=== PATIENT | female | born 1950 | race Caucasian/White ===

== ENCOUNTER 2019-01-27 05:32 | Inpatient (IN) ==
[~2019-01-27 05:32] MED LIST: Clindamycin 900mg (Premix) 900 MG/50 ML BAG IV ONE; LIDOCAINE W/ SODIUM BICARB 0.5 ML SYR ONE; Lactated Ringers 1,000 ML PRIMARY IV ONE; Sodium Chloride 0.9% 250 ML ONE; Vancomycin Inj 1gm vial ONE
[2019-01-27 05:53] LABS: BILIRUBIN,URINE SMALL (NEG); CLARITY,URINE CLEAR (CLEAR); COLOR,URINE YELLOW (Y); GLUCOSE, URINE (UA) NEGATIVE (NEG); OCCULT BLOOD,URINE Trace-intact (NEG); PH,URINE 5.5 (5.0-8.5); PROTEIN,URINE TRACE mg/dl (NEG)
[2019-01-27] MEDS ORDERED: Nasal Sanitizer POPSWAB ampule 3 AMP (Nozin) PREOP DOSE ENOS SCH (06:00)
[2019-01-27] MEDS ORDERED: Lactated Ringers 1,000 ML PRIMARY IV ONE ×2 (06:00→14:23)
[2019-01-27] MEDS ORDERED: Clindamycin 900mg (Premix) 900 MG/50 ML BAG IV ONE (06:00)
[2019-01-27] MEDS ORDERED: LIDOCAINE W/ SODIUM BICARB 0.5 ML SYR SUBD ONE (06:00)
[2019-01-27 06:18] LABS: SQUAMOUS EPITHELIAL CELL,UR MODERATE; URINE SAMPLE TYPE VOIDED SPECIMEN
[2019-01-27 06:19] LABS: BACTERIA,URINE FEW
[2019-01-27] MEDS ORDERED: Sodium Chloride 0.9% vial 20 ML ONE (06:46)
[2019-01-27] MEDS ORDERED: BACITRACIN 50,000 UNIT VIAL IRRIG ONE (06:47)
[2019-01-27] MEDS ORDERED: BUPIVACAINE 0.25% W/ EPI - 10 ML VIAL ONE (06:47)
[2019-01-27] MEDS ORDERED: Propofol 1,000 MG/100 ML VIAL IV ONE ×4 (06:48→13:37)
[2019-01-27] MEDS ORDERED: Sodium Chloride 0.9% 250 ML ONE (06:53)
[2019-01-27] MEDS ORDERED: REMIFENTANIL 1 MG/1 ML IV ONE ×3 (06:54→16:11)
[2019-01-27] MEDS ORDERED: REMIFENTANIL HCL 2 MG VIAL IV ONE ×5 (06:54→16:11)
[2019-01-27] MEDS ORDERED: LIDOCAINE MPF 2% - 5 ML (20 MG/1 ML) ONE ×2 (06:57→13:39)
[2019-01-27] MEDS ORDERED: SUFENTANIL 50 MCG/1 ML ONE (06:59)
[2019-01-27] MEDS ORDERED: MIDAZOLAM 5 MG/1 ML ONE ×2 (06:59→13:39)
[2019-01-27] MEDS ORDERED: Acetaminophen 1000mg Inj 1,000 MG/100 ML VIAL IV ONE (07:35)
[2019-01-27] MEDS ORDERED: DEXAMETHASONE PF 10 MG/1 ML VIAL ONE (07:57)
[2019-01-27] MEDS ORDERED: ONDANSETRON 4 MG/2 ML VIAL ONE (07:57)
[2019-01-27] MEDS ORDERED: KETAMINE HCL 100 MG/2 ML SYRINGE IV ONE (08:27)
[2019-01-27] MEDS ORDERED: HYDROmorphone 2 MG/1 ML ONE (12:18)
[2019-01-27] MEDS ORDERED: ONDANSETRON 4 MG/2 ML VIAL IVP PRN (13:22)
[2019-01-27] MEDS ORDERED: LIDOCAINE W/ SODIUM BICARB 0.5 ML SYR SUBD PRN (13:22)
--- NOTE | 2019-01-27 13:25 | CRNA.PROGR ---
Anesthesia Time - Procedure/Recovery Time Start Date: 01/27/19 End Date: 01/27/19 Anesthesia : Time In: 07:27 Anesthesia : Time Out: 13:11 Anesthesia : Total Time: 344 - Total Anesthesia Time Total Anesthesia Time (minutes): 344 - Other Weight: 59.421 kg Height: 5 ft 8 in Body Mass Index (BMI): 19.9 Physical Status: P2 Anesthesia Type: General Anesthesia : ET (Difficult Airway)
--- NOTE | 2019-01-27 13:25 | CRNA.PROGR ---
Anesthesia Recovery Phase I - Post Anesthesia Evaluation Patient's Condition on Arrival in Phase I: Fair Pain Level: 2
[2019-01-27] MEDS ORDERED: DIAZEPAM 10 MG/2 ML (5 MG/1 ML) CARPUJECT IVP PRN (13:27)
[2019-01-27] MEDS: HYDROmorphone 2 MG/1 ML IVP PRN ×5 (13:33→14:03)
[2019-01-27] MEDS ORDERED: PROPOFOL 10 MG/1 ML (200 MG/20 ML) VIAL IV ONE (13:37)
[2019-01-27] MEDS ORDERED: fentaNYL Inj 250 MCG/5 ML VIAL ONE (13:39)
[2019-01-27] MEDS ORDERED: HYDRALAZINE 20 MG/1 ML ONE (14:33)
[2019-01-27] MEDS: HYDRALAZINE 20 MG/1 ML IVP SCH ×6 (14:34→18:08)
[2019-01-27] MEDS ORDERED: Fleet Enema 133ml RECTAL PRN (15:26)
[2019-01-27] MEDS ORDERED: Vancomycin-PHA to Dose IV SCH (15:26)
[2019-01-27] MEDS ORDERED: HYDROcodone-APAP 5 MG -325 MG TABLET PO PRN (15:26)
[2019-01-27] MEDS ORDERED: Ondansetron ODT Tab 4 MG TAB PO PRN (15:26)
[2019-01-27] MEDS ORDERED: Prochlorperazine Edisylate Inj 10mg/2ml vial IVP PRN (15:26)
[2019-01-27] MEDS ORDERED: MAGNESIUM 400 MG/5 ML - 30 ML (MILK OF MAGNESIA) PO PRN (15:26)
[2019-01-27] MEDS ORDERED: PROMETHAZINE 25 MG/1 ML VIAL IM PRN (15:26)
[2019-01-27] MEDS ORDERED: MAGNESIUM CITRATE 296 ML SOLUTION PO PRN (15:26)
[2019-01-27] MEDS: HYDROcodone-APAP 7.5 MG-325 MG TABLET PO PRN ×2 (16:17→22:03)
[2019-01-27] MEDS ORDERED: Lactated Ringers 2,000 ML PRIMARY IV ONE (16:17)
[2019-01-27] MEDS: MORPHINE SULFATE 2 MG/1 ML IVP PRN ×2 (18:09→22:19)
[2019-01-27] MEDS: Clindamycin 900mg (Premix) 900 MG/50 ML BAG IV SCH ×2 (18:15→23:52)
--- NOTE | 2019-01-27 19:17 | PDOC ---
HPI - History of Present Illness Date of Service: 01/27/19 Time of Service: 19:10 Chief Complaint: chronic neck pain History of Present Illness: This is a 68 YO female that presented here for neck pain and neck surgery with Dr. Becerra. See his notes regarding the procedure performed. Post operatively, the patient has neck pain, but controlled. History is difficult due to decreased hearing, but she denies chest pain, shortness of breath, or nausea or vomiting. The patient had hypertension post operatively that required some hydralazine. The hospitalist service is consulted to help address medical issues of hypertension and hypercholesterolemia and seizure disorder while here for recovery from surgery. A posterior approach is planned for tomorrow. Past Medical History Medical History: 1. Hypothyroidism. 2. GERD. 3. Deaf. 4. seizure disorder. 5. chronic neck and back pain. 6. hypercholesterolemia. Surgical History: 1. neck surgery today. 2. hx of partial thyroidectomy or "scraping" per history from daughter. 3. s/p hysterectomy with incidental appendectomy Pertinent Family History: mother due to "old age" at 94. father had heart disease. Past Social History: X 2, no smoking, does not drink alcohol. has three children, all described as healthy. Her daughter present here today is her POA. patient lives in [place], [place]. going to recover post surgery with her daughter in [place], [place]. Tobacco Use: Never Smoker In the Past 12 Months, Have Used or Abuse Any of the Following Substance: None Alcohol Use: None Medication / Allergies Home Medications: Home Medications Medication Instructions Recorded Confirmed Type aspirin 81 mg tablet,delayed 81 mg PO QDAY 08/06/18 01/26/19 History release levothyroxine 50 mcg capsule 50 mcg PO QDAY 08/06/18 01/26/19 History naproxen sodium 220 mg capsule 220 mg PO BID PRN 08/06/18 01/26/19 History pantoprazole 20 mg tablet,delayed 20 mg PO QDAY 08/06/18 01/26/19 History release sertraline 100 mg tablet 100 mg PO QDAY 08/06/18 01/26/19 History simvastatin 10 mg tablet 10 mg PO QHS 08/06/18 01/26/19 History Biotin 5,000 mcg PO DAILY 12/25/18 01/26/19 History Cholecalciferol (Vitamin D3) 25 gm MC DAILY 12/25/18 01/26/19 History [Vitamin D3] [place]-3/Dha/Epa/Fish Oil [[place] 3 1 cap PO DAILY 12/25/18 01/26/19 History 500 Softgel] hydrocodone 5 mg-acetaminophen 325 1 tab PO Q4-6H PRN #90 tab 12/28/18 01/26/19 Rx mg tablet Allergies/Adverse Reactions: Allergies Allergy/AdvReac Type Severity Reaction Status Date / Time Penicillins Allergy HIVES Verified 01/27/19 06:12 Review of Systems - Ear/Nose Exam Ear/Nose Exam: REPORTS: Decreased Hearing - Respiratory Respiratory: REPORTS: Negative System Review - Cardiovascular Cardiovascular: REPORTS: Negative System Review - Gastrointestinal Gastrointestinal / Abdominal: REPORTS: Negative System Review Exam - Vitals Vital Signs: Vital Signs Temperature 96.8 F Temperature Source Axillary Pulse Rate [Pulse Oximeter] 96 Pulse Rate 108 Respiratory Rate 18 Blood Pressure [Left Arm] 116/87 Blood Pressure 100/67 Pulse Ox 96 Oxygen Flow Rate 5 Oxygen Delivery Method Nasal Cannula Height 5 ft 3 in Weight 131 lb - General General Appearance: No Acute Distress, Cooperative - Head Head Exam: Normal Inspection, Normocephalic, Atraumatic - Eye Eye Exam: POSITIVE: No Scleral Icterus - ENT ENT Exam: POSITIVE: Mucous Membranes Moist - Neck Neck Exam: JVP is not Raised Additional Neck Exam Details: swelling on right neck. ice pack in place bandage clean, dry, intact. - Respiratory Respiratory Exam: POSITIVE: Clear to Auscultation - Bilaterally, Breathing Non Labored - Cardiovascular Cardiovascular Exam: POSITIVE: RRR, No Clicks, No Gallops, No Rubs, Systolic Murmur (left upper sternal border.), No JVD - GI/Abdominal GI/Abdominal Exam: POSITIVE: Non Tender, Non Distended, Soft - Rectal Rectal Exam: POSITIVE: Deferred - External Exam: POSITIVE: Deferred Exam: POSITIVE: Deferred - Extremities Extremities Exam: POSITIVE: No Clubbing Present, No Edema Present, No Cyanosis Present - Neurological Neurological Exam: POSITIVE: Alert, Oriented x 3, No Facial Droop, Speech Intact / Clear, Moves All Extremities Equally Results - Labs Additional Lab Results: urine is negative on my view. Assessment and Plan - Patient Problems (1) Chronic neck and back pain Current Visit: Yes Status: Chronic Code(s): M54.2 - Cervicalgia; M54.9 - Dorsalgia, unspecified; G89.29 - Other chronic pain (2) Seizure disorder Current Visit: Yes Status: Acute Code(s): G40.909 - Epilepsy, unspecified, not intractable, without status epilepticus (3) Hearing loss Current Visit: Yes Status: Acute Code(s): H91.90 - Unspecified hearing loss, unspecified ear Qualifiers: Hearing loss type: unspecified Laterality: bilateral Qualified Code(s): H91.93 - Unspecified hearing loss, bilateral (4) High cholesterol Current Visit: Yes Status: Chronic Code(s): E78.00 - Pure hypercholesterolemia, unspecified (5) High blood pressure Current Visit: Yes Status: Chronic Code(s): I10 - Essential (primary) hypertension Qualifiers: Hypertension type: essential hypertension Qualified Code(s): I10 - Essential (primary) hypertension (6) History of neck surgery Current Visit: Yes Status: Acute Code(s): Z98.890 - Other specified postprocedural states - Assessment / Plan Additional Assessment/Plan Details: patient admitted post neck surgery will write for PRN blood pressure medications if SBP are too high labs in AM continue home medications as best as we can. pain management as per neurosurgery.
[2019-01-27] MEDS: Simvastatin Tab 10 MG TAB PO SCH (22:03)
[2019-01-27] MEDS: ONDANSETRON 4 MG/2 ML VIAL IVP PRN (23:35)
[2019-01-27] MEDS: DIAZEPAM 5 MG TABLET PO PRN (23:35)
[2019-01-27] MEDS: HYDRALAZINE 20 MG/1 ML IVP PRN (23:49)
[2019-01-28] MEDS: MORPHINE SULFATE 2 MG/1 ML IVP PRN (02:34)
[2019-01-28] MEDS ORDERED: Lactated Ringers 1,000 ML PRIMARY IV ONE (04:30)
[2019-01-28 04:54] LABS: BASOPHILS # (AUTO) 0 10*3/UL; BASOPHILS % (AUTO) 0 % (0-1); EOSINOPHILS # (AUTO) 0 10*3/UL; EOSINOPHILS % (AUTO) 0 % (0-8); Hematocrit [HCT] 38.1 % (37.0-47.0); Hemoglobin [HGB] 12.5 g/dL (12.0-16.0); LYMPHOCYTES # (AUTO) 0.95 10*3/uL; MEAN CORPUSCULAR HEMOGLOBIN 31.9 PG (27-31); MEAN CORPUSCULAR HGB CONC 32.8 g/dL (33-37); MEAN CORPUSCULAR VOLUME 97.2 FL (81-99); MONOCYTES # (AUTO) 0.63 10*3/UL (0.3-0.8); MONOCYTES % (AUTO) 6.4 % (5-15); NEUTROPHILS # (AUTO) 8.27 10*3/UL; NEUTROPHILS % (AUTO) 83.8 % (50-80); RED BLOOD COUNT 3.92 10^6/uL (4.20-5.40)
[2019-01-28] MEDS ORDERED: Vancomycin-PHA to Dose IV ONE (05:00)
[2019-01-28 05:15] LABS: BUN/CREATININE RATIO 19.09 (6-20)
[2019-01-28] MEDS: ONDANSETRON 4 MG/2 ML VIAL IVP PRN ×2 (05:41→11:33)
[2019-01-28 05:47] LABS: PLATELET MORPHOLOGY COMMENT NORMAL MORPHOLOGY (NORM); RBC MORPHOLOGY COMMENT NORMAL MORPHOLOGY (NORM); WBC MORPHOLOGY COMMENT NORMAL MORPHOLOGY (NORM)
[2019-01-28] MEDS: LEVOTHYROXINE 50 MCG TABLET PO SCH (06:13)
[2019-01-28] MEDS: HYDROmorphone 2 MG/1 ML IVP PRN ×2 (06:16→22:18)
[2019-01-28] MEDS: PANTOPRAZOLE 40 MG TABLET PO SCH ×3 (07:23→07:33)
[2019-01-28] MEDS: Sertraline Tab 50 MG TAB PO SCH (09:37)
--- NOTE | 2019-01-28 12:19 | NEURO.PROG ---
Subjective Post Op Day: 0 Pain Management: PO Keen Catheter: Yes Flatus: Yes Diet: Regular Ambulating: No Additional Details: Late Entry Patient seen last evening, 01/27/2019 (not able to access [employer] from hotel room later when trying to complete visit note). Awake, but somewhat sleepy. Patient awoke with tonic posturing but no clear seizure activity, mental status normal once awake with no evidence of post-ictal state. Neck - soft/flat. Dressing - clean, dry, intact. Moving all extremities well. PLAN: 1.) Continue post-operative antibiotics. 2.) Continue post-operative pain control. 3.) Posterior cervical/thoracic instrumented fusion tomorrow. Objective : Data - Labs CBC and BMP: 01/28/19 04:16 01/28/19 04:16 - Vital Signs Vital Signs and I&O: Vital Signs - Last Taken Temperature 97.5 F 01/28/19 09:00 Pulse Rate 88 01/28/19 11:19 Respiratory Rate 16 01/28/19 11:19 Blood Pressure 173/95 01/28/19 11:19 Pulse Ox 98 01/28/19 11:19 Intake and Output (24hr x 4 totals) 01/26/19 01/27/19 01/28/19 01/29/19 05:59 05:59 05:59 05:59 Intake Total 3646 / 3646 Output Total 1999 Balance 1646 / 1646
--- NOTE | 2019-01-28 12:27 | CRNA.PROGR ---
Anesthesia Note - Progress Notes Anesthesia Progress Note: Post OP Anesthesia Note Pt is sitting up at the bedside in a recliner, her daughter was at her side. Pt is extremely sleepy and not answering question also as a result of her hearing deficit. She has not has much of an appetite and has had some intermittent N ausea. However, she has been drinking fluids well. Also, her blood pressure has returned to 170/90's this morning. She was only able to sit at the bedside and take a few steps to the recliner. Vital Signs - Last Taken Temperature 97.5 F 01/28/19 09:00 Pulse Rate 88 01/28/19 11:19 Respiratory Rate 16 01/28/19 11:19 Blood Pressure 173/95 01/28/19 11:19 Pulse Ox 98 01/28/19 11:19 The family and patient have decided to post pone the second phase of the surgery originally scheduled for today, to a later date.
--- NOTE | 2019-01-28 12:27 | NEURO.PROG ---
Subjective Post Op Day: 1 Pain Management: PO Keen Catheter: No Flatus: Yes Diet: Regular Ambulating: Yes Additional Details: Awake and alert. Throat quite sore. Post-operative discomfort. Nausea with profuse vomiting this morning. Moving all extremities well. Not keen on proceeding with second stage of surgical plan (posterior cervicothoracic instrumented fusion). PLAN: 1.) Discussed with Ms. Kessler that we can delay/postpone second portion of procedure if she wishes. Her neck is entirely stable and she will be in a cervical collar. We discussed if in a month in the cervical collar she still have significant neck pain, we could proceed with the second part then or if she is doing well at that time we could continue her collar for another month (8 weeks total) and then take her out of the collar and if a month later (3 months out from the surgical procedure) she is still having significant neck pain we could proceed with the posterior cervical thoracic instrumented fusion. 2.) Since she had such profuse vomiting this morning, I think that she should stay another day before discharge so we can potentially treat further nausea/vomiting with IV meds, as vomiting should be avoided early post-op in an anterior cervical fusion. She was amenable to staying. Objective : Data - Labs CBC and BMP: 01/28/19 04:16 01/28/19 04:16 - Vital Signs Vital Signs and I&O: Vital Signs - Last Taken Temperature 97.5 F 01/28/19 09:00 Pulse Rate 88 01/28/19 11:19 Respiratory Rate 16 01/28/19 11:19 Blood Pressure 173/95 01/28/19 11:19 Pulse Ox 98 01/28/19 11:19 Intake and Output (24hr x 4 totals) 01/26/19 01/27/19 01/28/19 01/29/19 05:59 05:59 05:59 05:59 Intake Total 3646 / 3646 Output Total 1999 Balance 1646 / 1646
[2019-01-28] MEDS ORDERED: LISINOPRIL 20 MG TABLET PO ONE (13:19)
--- NOTE | 2019-01-28 13:22 | PDOC(PROG) ---
Date of Service: 01/28/19 Time of Service: 13:16 Interval History: no complaints of chest pain, SOB, or abdominal pain. had nausea and vomiting. has been tired today, sleepy. did not want to proceed with posterior portion of surgery at this time. Objective : Data - Labs CBC and BMP: 01/28/19 04:16 01/28/19 04:16 Objective : Exam - General General Appearance: No Acute Distress, Cooperative Additional General Exam Details: Vital Signs - Last Taken Temperature 97.5 F 01/28/19 09:00 Pulse Rate 88 01/28/19 11:19 Respiratory Rate 16 01/28/19 11:19 Blood Pressure 173/95 01/28/19 11:19 Pulse Ox 98 01/28/19 11:19 - Eye Eye Exam: No Scleral Icterus - ENT ENT Exam: Mucous Membranes Moist - Neck Neck Exam: JVP is not Raised - Respiratory Respiratory Exam: Clear to Auscultation - Bilaterally, Breathing Non Labored - Cardiovascular Cardiovascular Exam: RRR, No Clicks, No Gallops, No Rubs, No JVD - GI/Abdominal GI/Abdominal Exam: Normal Bowel Sounds, Non Tender, Non Distended, Soft - Extremities Extremities Exam: No Clubbing Present, No Edema Present, No Cyanosis Present - Neurological Neurological Exam: Alert, Oriented x 3, No Facial Droop, Speech Intact / Clear, Moves All Extremities Equally Assessment and Plan - Patient Problems (1) High blood pressure Current Visit: Yes Status: Chronic Code(s): I10 - Essential (primary) hypertension Qualifiers: Hypertension type: essential hypertension Qualified Code(s): I10 - Essential (primary) hypertension (2) Chronic neck and back pain Current Visit: Yes Status: Chronic Code(s): M54.2 - Cervicalgia; M54.9 - Dorsalgia, unspecified; G89.29 - Other chronic pain (3) Seizure disorder Current Visit: Yes Status: Acute Code(s): G40.909 - Epilepsy, unspecified, not intractable, without status epilepticus (4) Hearing loss Current Visit: Yes Status: Acute Code(s): H91.90 - Unspecified hearing loss, unspecified ear Qualifiers: Hearing loss type: unspecified Laterality: bilateral Qualified Code(s): H91.93 - Unspecified hearing loss, bilateral (5) High cholesterol Current Visit: Yes Status: Chronic Code(s): E78.00 - Pure hypercholesterolemia, unspecified (6) History of neck surgery Current Visit: Yes Status: Acute Code(s): Z98.890 - Other specified postprocedural states - Assessment / Plan Additional Assessment/Plan Details: add lisinopril for elevated BP stop IV fluids if nausea and vomiting stop if too sedated, may need to consider stepping back from current doses on pain meds/benzos, as per neurosurgery. labs in AM I reviewed notes from PCP--no mention of seizure disorder--not sure that patient is post ichtal to explain tiredness discontinue bernal catheter today.
[2019-01-28] MEDS: HYDROcodone-APAP 7.5 MG-325 MG TABLET PO PRN ×2 (14:32→20:02)
--- NOTE | 2019-01-28 16:47 | GEN.OPNOTE ---
Operative Note Surgery Date: 01/27/19 Preoperative Diagnosis: 1. Chronic neck pain with bilateral upper extremity radiculopathy. 2. Multilevel advanced cervical degenerative disc disease C3-T1. 3. Multilevel cervical spondylosis. 4. Moderate central canal stenosis C4-5, mild central canal stenosis C5-6. 5. Severe right and moderately severe left C4-5 neuroforaminal stenosis. 6. Loss of the normal cervical lordosis with relative kyphosis of the upper cervical spine centered at C3-4. Postoperative Diagnosis: 1. Chronic neck pain with bilateral upper extremity radiculopathy. 2. Multilevel advanced cervical degenerative disc disease C3-T1. 3. Multilevel cervical spondylosis. 4. Moderate central canal stenosis C4-5, mild central canal stenosis C5-6. 5. Severe right and moderately severe left C4-5 neuroforaminal stenosis. 6. Loss of the normal cervical lordosis with relative kyphosis of the upper cervical spine centered at C3-4. Procedure: 1.) Anterior cervical discectomy, C4-5 for decompression of central cervical canal stenosis and bilateral neuroforaminal stenosis. (CPT code: 50619). 2.) Anterior cervical discectomy, C5-6 for decompression of central cervical canal stenosis and bilateral neuroforaminal stenosis. (CPT code: 74258). 3.) Arthrodesis, anterior interbody technique, C3-4. (CPT code: 71274). 4.) Arthrodesis, anterior interbody technique, C4-5. (CPT code: 08167). 5.) Arthrodesis, anterior interbody technique, C5-6. (CPT code: 81089). 6.) Arthrodesis, anterior interbody technique, C6-7. (CPT code: 26181). 7.) Insertion of a 6 mm x 17 mm x 14 mm 6-degree lordotic Primo Tritanium C titanium anterior cervical cage filled in the center with DBM putty in the C3-4 interspace for fusion of the C3-4 interspace. (CPT code: 49580). 8.) Insertion of a 7 mm x 17 mm x 14 mm 6-degree lordotic Primo Tritanium C titanium anterior cervical cage filled in the center with DBM putty in the C4-5 interspace for fusion of the C4-5 interspace. (CPT code: 92392). 9.) Insertion of a 6 mm x 17 mm x 14 mm 6-degree lordotic Primo Tritanium C titanium anterior cervical cage filled in the center with DBM putty in the C5-6 interspace for fusion of the C5-6 interspace. (CPT code: 46864). 10.) Insertion of a 7 mm x 17 mm x 14 mm 6-degree lordotic [place] Tritanium C titanium anterior cervical cage filled in the center with DBM putty in the C6-7 interspace for fusion of the C6-7 interspace. (CPT code: 22903). 11.) Anterior cervical plating C3-C7 using a 4-level, 10 hole, 60 mm [place] Aviator titanium anterior cervical plate, affixed to the C3 vertebral body using 4.0 mm x 16 mm variable angle titanium anterior cervical screws, to the C4, C5, and C6 vertebral bodies using 4.0 mm x 14 mm variable angle titanium anterior cervical screws, and to the C7 vertebral body using 4.0 mm x 16 mm fixed angle titanium anterior cervical screws. (CPT code: 09959). 12.) Use of 5 cc of [place] Right BIO DBM Plus Putty with cancellous (implantable allograft) for filling of the anterior cervical cages. (CPT code: 01554). 13.) Use of the operative microscope for the microsurgical techiques for the C3-4, C4-5, C5-6, and C6-7 discectomies. (CPT code: 63442). 14.) Use of intra-operative fluoroscopy for localization of correct surgical levels, for confirmation of the final position of the intervertebral cages, and for confirmation of the final position of the anterior cervical hardware elements. 15.) Use of intra-operative neurom onitoring including free running EMG's, SSEP's, and MEP's. Surgeon: Adal Becerra MD Show Horse Driver: MEAGAN Salamanca Anesthesia Provider: Fernando Rai CRNA Anesthesia Type: General Estimated Blood Loss (mL): 50 Fluids: See anesthesia record Pathology: None Indications: Ms. Kessler is a 68 year old female with chronic neck and chronic low back pain. Her neck pain radiates into her arms bilaterally and her back pain radiates into her right buttocks and right upper leg. Ms. Kessler had an MRI of the cervical spine that demonstrated advanced multilevel cervical degenerative disc disease and multilevel cervical spondylosis. This study demonstrated mild central canal stenosis at C5-6 and moderate central canal stenosis at C4-5. This study demonstrated a moderate right C3-4 neural foraminal stenosis severe and moderately severe on the left C4-5 neural foraminal stenosis and mild right and moderate left C5-6 neural foraminal stenosis. She had x-ray images of her lumbar spine that demonstrated multilevel lumbar degenerative disc disease most advanced at T12-L1 and L4-5. This study demonstrated multilevel lumbar spondylosis with facet arthropathy and hypertrophy most advanced at the L4-5 level. Ms. Kessler had a cervical thoracic lumbar myelogram and post myelogram CT. This study demonstrates advanced multilevel cervical degenerative disc disease and cervical spondylosis throughout the cervical spine. There is essentially complete collapse of the disc space at C3-4 and there is loss of the majority of the disc space height at C4-5, C5-6, C6-7 and C7-T1 with the posterior aspect of the vertebral endplates basically in contact at all of these levels. There is diffuse disc osteophyte complexes at all of the cervical levels. There is, however, no high grade cervical central canal stenosis. There is, however, a multilevel severe cervical neural foraminal stenosis. There is good posterior alignment to the vertebral bodies and maintenance of the majority of the cervical lordosis except at the C3-4 level where a mild kyphotic angulation is. Ms. Kessler wished to proceed with surgical treatment of her neck issues first as she had failed to have any improvement with non-operative therapies. We had discussed surgical treatment with a C3-7 anterior cervical discectomy followed by a C3-T2 posterior instrumented fusion in a staged fashion on 01/27/19 and 01/28/19. She wished to proceed with surgical treatment. Findings: 1.) Multilevel advanced cervical degenerative disc disease with severe cervical disc space collapse. 2.) Multilevel prominent disc/osteophyte complexes and multilevel uncal osteophytes bilaterally. 3.) Multilevel cervical spinal canal stenosis and multilevel severe cervical neuroforaminal stenosis. Complications: None Operative Summary: Ms. Kessler was met in the preoperative area. Her documented surgical history and physical was reviewed. We reviewed the procedure to be performed and we were in agreement on the procedure to be performed and this matched what was written on the patient's consent form. Any questions that Ms. Kessler or her daughter had were answered before she was taken back to the operating room suite. Ms. Kessler was brought back to the operating room suite. She was moved over onto the surgical bed in supine position. General anesthesia was induced by the anesthesia staff and she was intubated. A Keen catheter was placed in her bladder for the procedure. She had pneumatic compression hose placed on her lower legs bilaterally. Her head was placed on a gel ring and rolled up surgical towels were placed in the intrascapular area and under her shoulders bilaterally. Her arms were gently tucked at her sides. All bony prominences were well padded. Her Keen catheter was checked to be free from kinks. Her pneumatic compression hose were attached to a pneumatic compression devise. The C-arm fluoroscopy unit was used to help localize the skin incision for the approach to the intended surgical level. The skin was marked along the medial border of the sternocleidomastoid muscle with a skin marker. Ms. Kessler was prepped and draped in the usual and standard fashion. She was given 900 mg of Cleocin and 1 gram of vancomycin IV for perioperative antibiosis. A standard surgical timeout was performed identifying the correct patient, the correct procedure, and the correct equipment being available for the procedure. The intended skin incision was injected subcutaneously with quarter percent Marcaine with 1 in 200,000 epinephrine. The skin was incised with a 10 blade scalpel and all dermal and superficial bleeding points controlled with bipolar cautery. Dissection was continued down through the subcutaneous tissue to the level of the platysma muscle. The platysma muscle was incised with the Metzenbaum scissors in the direction of the skin incision. This allowed identification the medial border of the sternocleidomastoid muscle. Further dissection identified the omohyoid muscle which was circumferentially dissected out, tagged with two 0-Silk suture and then cut with a Metzenbaum scissors with the muscle stumps retracted with snaps attached to the sutures. Continued dissection was performed medial to the sternocleidomastoid muscle in both a sharp and blunt fashion down to the pre- vertebral fascia. The carotid artery was palpated to be lateral to the dissection plane. Cloward hand-held retractors were used to retract and protect the soft tissues while the prevertebral fascia was dissected with a Kitner. Once the disc space became exposed a bent spinal needle was placed into the disc space and the level was localized as the C4-5 level, one of the intended surgical levels with lateral fluoroscopy. Continued dissection of the prevertebral fascia was performed exposing the C3, C4, C5, C6, and C7 vertebral bodies. The medial border of the longus coli muscle was dissected with Bovie cautery with an insulated tip turned down to a low setting from C3-C7 bilaterally. The hand-held Cloward retractors were then replaced with the Circulation Manager self-retaining retractor system which was first placed at the C3-4 level to expose this level and protect the soft tissues at this level. A 12 mm distraction pin was placed into the C3 vertebral body and another was placed into the C4 vertebral body. The operative microscope was brought into the surgical field and used for microsurgical techniques used for the C3-4 discectomy. An annulotomy was performed with a 15 blade scalpel and disc material was removed with a pituitary rongeur. Additional disc and cartilaginous endplate was loosened in the disc space using a small straight curette with the fragments being removed with a pituitary rongeur. The high-speed [employer] drill with a matchstick bit was used to perform arthrodesis/decortication of the C3 and C4 endplates preparing the endplates for fusion. The same drill with the same bit was used to drill away the prominent diffuse osteophytes along the posterior inferior aspect of the C3 vertebral body and the posterior superior aspect of C4 vertebral body as well as the uncovertebral joints bilaterally which were hypertrophied bilaterally. Foraminotomies were performed bilaterally with the same drill with same bit. A nerve hook was used to define the plane between the posterior longitudinal ligament and the dura. The posterior longitudinal ligament was completely removed with small Kerrison punches. The same instruments were used to extend the foraminotomies bilaterally that had been started with the high-speed drill with a matchstick bit. Excellent decompression of the spinal canal, neuroforamen, and exiting nerve roots was assured both by visual inspection as well as by palpation with a nerve hook underneath the vertebral bodies and out the neuroforamen bilaterally. The interspace was irrigated with bacitracin irrigation. FloSeal hemostatic agent was placed over all exposed dural elements. The interspace was sized the appropriate size anterior cervical cage. A 6 mm x 14 mm x 17 mm 6-degree lordotic Tritanium C titanium anterior cervical cage was selected and filled in the center with Primo BIO DBM Plus Putty with Cancellous (allograft) and then inserted into the C3-4 interspace with the stitchdown toe former. The cage was gently countersunk with a bone tamp and mallet. The cage obtained good purchase between the C3 and C4 endplates. The final position of the cage was confirmed with lateral fluoroscopy. The C3 [place] distraction pin was removed and bony bleeding was controlled with FloSeal and a surgical cornel. The Circulation Manager self-retaining retractor system was removed and placed across the C4-5 level for the exposure this level and the protection of the soft tissues at this level. The [place] distraction pin was placed into the C5 vertebral body. The operative microscope was used for this microsurgical techniques used for the C4-5 discectomy. An annulotomy was performed with a 15 blade scalpel and disc material was removed with a pituitary rongeur. Additional disc and cartilaginous endplate was loosened in the disc space with a small straight curette with the fragments being removed with a pituitary ronqeur. The high- speed [employer] drill with a matchstick bit was used to perform arthrodesis/decortication of the C4 and C5 endplates preparing the endplates for fusion. The same drill with the same bit was used to drill away the diffuse, prominent osteophytes along the posterior inferior aspect of the C4 vertebral body and the posterior superior aspect of the C5 vertebral body as well as to drill away the uncovertebral joint hypertrophy bilaterally. Foraminotomies were performed bilaterally with the same drill with the same bit. A nerve hook was used to define the plane between the posterior longitudinal ligament and the dura. The posterior longitudinal ligament was completely removed with small Kerrison punches. The same instruments were used to extend the foraminotomies bilaterally that had been started with the high-speed drill with a matchstick bit. Excellent decompression of the spinal canal, neuroforamen, and exiting nerve roots was assured both by visual inspection as well as by palpation with a nerve hook underneath the vertebral bodies and out the neuroforamen bilaterally. The interspace was irrigated with bacitracin irrigation. FloSeal hemostatic agent was placed over all exposed dural elements. The interspace was sized the appropriate size anterior cervical cage. A 7 mm x 14 mm x 17 mm 6-degree Tritanium C titanium anterior cervical cage was selected and filled in the center with Primo BIO DBM Plus Putty with Cancellous (allograft) and then inserted into the C4-5 interspace with the stitchdown toe former. The cage was gently countersunk with a bone tamp and mallet. The cage obtained good purchase between the C4 and C5 endplates. The final position of the cage was confirmed with lateral fluoroscopy. The C5 [place] distraction pin was removed and bony bleeding was controlled with FloSeal and a surgical cornel. The Circulation Manager self-retaining retractor system was removed and placed across the C5-6 level for the exposure this level and the protection of the soft tissues at this level. The [place] distraction pin was placed into the C6 vertebral body. The operative microscope was used for this microsurgical techniques used for the C5-6 discectomy. An annulotomy was performed with a 15 blade scalpel and disc material was removed with a pituitary rongeur. Additional disc and cartilaginous endplate was loosened in the disc space with a small straight curette with the fragments being removed with a pituitary ronqeur. The high- speed Tilson Janak drill with a matchstick bit was used to perform arthrodesis/decortication of the C5 and C6 endplates preparing the endplates for fusion. The same drill with the same bit was used to drill away the diffuse, prominent osteophytes along the posterior inferior aspect of the C5 vertebral body and the posterior superior aspect of the C6 vertebral body as well as to drill away the uncovertebral joint hypertrophy bilaterally. Foraminotomies were performed bilaterally with the same drill with the same bit. A nerve hook was used to define the plane between the posterior longitudinal ligament and the dura. The posterior longitudinal ligament was completely removed with small Kerrison punches. The same instruments were used to extend the foraminotomies bilaterally that had been started with the high-speed drill with a matchstick bit. Excellent decompression of the spinal canal, neuroforamen, and exiting nerve roots was assured both by visual inspection as well as by palpation with a nerve hook underneath the vertebral bodies and out the neuroforamen bilaterally. The interspace was irrigated with bacitracin irrigation. FloSeal hemostatic agent was placed over all exposed dural elements. The interspace was sized the appropriate size anterior cervical cage. A 6 mm x 14 mm x 17 mm 6-degree Tritanium C titanium anterior cervical cage was selected and filled in the center with Primo BIO DBM Plus Putty with Cancellous (allograft) and then inserted into the C5-6 interspace with the stitchdown toe former. The cage was gently countersunk with a bone tamp and mallet. The cage obtained good purchase between the C6 and C7 endplates. The final position of the cage was confirmed with lateral fluoroscopy. The C5 [place] distraction pin was removed and bony bleeding was controlled with FloSeal and a surgical cornel. The Circulation Manager self-retaining retractor system was removed and placed across the C5-6 level for the exposure this level and the protection of the soft tissues at this level. The [place] distraction pin was placed into the C7 vertebral body. The operative microscope was used for this microsurgical techniques used for the C6-7 discectomy. An annulotomy was performed with a 15 blade scalpel and disc material was removed with a pituitary rongeur. Additional disc and cartilaginous endplate was loosened in the disc space with a small straight curette with the fragments being removed with a pituitary ronqeur. The high- speed End[employer] drill with a matchstick bit was used to perform arthrodesis/decortication of the C6 and C7 endplates preparing the endplates for fusion. The same drill with the same bit was used to drill away the diffuse, prominent osteophytes along the posterior inferior aspect of the C6 vertebral body and the posterior superior aspect of the C7 vertebral body as well as to drill away the uncovertebral joint hypertrophy bilaterally. Foraminotomies were performed bilaterally with the same drill with the same bit. A nerve hook was used to define the plane between the posterior longitudinal ligament and the dura. The posterior longitudinal ligament was completely removed with small Kerrison punches. The same instruments were used to extend the foraminotomies bilaterally that had been started with the high-speed drill with a matchstick bit. Excellent decompression of the spinal canal, neuroforamen, and exiting nerve roots was assured both by visual inspection as well as by palpation with a nerve hook underneath the vertebral bodies and out the neuroforamen bilaterally. The interspace was irrigated with bacitracin irrigation. FloSeal hemostatic agent was placed over all exposed dural elements. The interspace was sized the appropriate size anterior cervical cage. A 7 mm x 14 mm x 17 mm 6-degree Tritanium C titanium anterior cervical cage was selected and filled in the center with Primo BIO DBM Plus Putty with Cancellous (allograft) and then inserted into the C6-7 interspace with the stitchdown toe former. The cage was gently countersunk with a bone tamp and mallet. The cage obtained good purchase between the C6 and C7 endplates. The final position of the cage was confirmed with lateral fluoroscopy. The [place] distraction pins in the C6 and C7 vertebral bodies were removed. Bony bleeding was controlled FloSeal and surgical patties. The Circulation Manager self- retaining retractor system was removed and placed in the center portion of the surgical dissection to provide the proper exposure needed for the instrumentation portion of the procedure. Any remaining C3, C4, C5, C6, and C7 anterior osteophytes were removed with the large [place] rongeur as well as with the high speed drill with the matchstick bit. The appropriate size anterior cervical plate were selected both by visual inspection as well as by lateral fluoroscopy. A 4 level, 10 hole, 60 mm Primo Aviator titanium anterior cervical plate was selected and affixed to the C3 vertebral bodies using 4.0 mm x 16 mm variable angle titanium anterior cervical screws and to the C4, C5, and C6 vertebral bodies using 4.0 mm x 14 mm variable angle titanium screws, and to the C7 vertebral body using 4.0 mm x 16 mm fixed angle titanium anterior cervical screws. All screws obtained good purchase in the vertebral body bone. The locking mechanism was then deployed at each with visual inspection confirming that the locking mechanism fully deployed across each of the screw heads at each level of the plate bilaterally. The Circulation Manager self-retaining retractor system was removed from the surgical site. Final AP and lateral fluoroscopic images were obtained. The burleson of the dissection plane were inspected for any bleeding points. Any identified were coagulated with bipolar cautery. The surgical site was copiously irrigated with bacitracin irrigation allowing the irrigant to sit to again inspect for any bleeding points with none identified. A medium REANNA drain was placed into the surgical site. The closure portion of the procedure was begun. The omohyoid muscle was re-approximated by the 0-Silk suture attached to the muscle stumps and by two interrupted 3-0 Vicryl suture. The platysma muscle was reapproximated with 3-0 Vicryl suture in an interrupted fashion. The dermis and superficial subcutaneous tissue was reapproximated with 3-0 Vicryl suture in an inverted interrupted fashion. The incision was cleansed with a bacitracin soaked sponge and dried with a sterile dry sponge. Steri-Strips were placed across the incision. The incision was dressed with a Covaderm dressing. The surgical drain was secured with suture. The drain site was dressed. All surgical drapes removed from Ms. Kessler. She was carefully moved over onto the PACU stretcher. She was awoken and extubated by the anesthesia staff. She was taken to the recovery room in stable condition. All surgical counts reported as correct by the scrub and circulating personnel. A Physician's Show Horse Driver, Ms. Vibha Garcia PA-C, assisted with the procedure including the exposure and closure portions of the procedure. She also provided irrigation and suctioning throughout the procedure.
[2019-01-28] MEDS: Simvastatin Tab 10 MG TAB PO SCH (20:02)
[2019-01-29] MEDS: HYDROcodone-APAP 7.5 MG-325 MG TABLET PO PRN ×3 (01:58→11:57)
[2019-01-29] MEDS: LEVOTHYROXINE 50 MCG TABLET PO SCH (04:40)
[2019-01-29] MEDS: LEVOTHYROXINE 75 MCG TABLET PO SCH (04:41)
[2019-01-29 06:06] LABS: Hematocrit [HCT] 37.7 % (37.0-47.0); MEAN CORPUSCULAR HEMOGLOBIN 31.7 PG (27-31); MEAN CORPUSCULAR HGB CONC 31.8 g/dL (33-37); MEAN CORPUSCULAR VOLUME 99.5 FL (81-99); RED BLOOD COUNT 3.79 10^6/uL (4.20-5.40)
[2019-01-29 06:13] LABS: BLOOD UREA NITROGEN 15 mg/dL (7-22); BUN/CREATININE RATIO 18.75 (6-20)
[2019-01-29] MEDS: PANTOPRAZOLE 40 MG TABLET PO SCH ×3 (07:17)
--- NOTE | 2019-01-29 07:21 | NEURO.PROG ---
Subjective Post Op Day: 2 Pain Management: PO Keen Catheter: No Flatus: Yes Diet: Regular Additional Details: Ms Kessler is awake and alert. She complained of some dyspepsia, no nausea or vomiting. She has been eating and drinking without difficulty. Her bilateral grasp is equal and relatively strong. Her arm raise is limited bilaterally, which she said is because of shoulder pain. Her incision is dry and intact and there is minimal serosanguinous drainage in her toney drain. She continues to be hypertensive with 175/95 this morning. She is requiring 1 liter oxygen. She did not ambulate with physical therapy yesterday, so will plan to increase her mobilization today. Plan is to discontinue her drain, increase mobilization and plan for discharge per hospitalist. From a neuro standpoint she is ready for discharge. Objective : Data - Labs CBC and BMP: 01/29/19 05:10 01/29/19 05:10 - Vital Signs Vital Signs and I&O: Vital Signs - Last Taken Temperature 98.8 F 01/29/19 03:47 Pulse Rate 104 H 01/29/19 03:47 Respiratory Rate 22 01/29/19 03:47 Blood Pressure 175/95 01/29/19 03:47 Pulse Ox 95 01/29/19 04:10 Intake and Output (24hr x 4 totals) 01/27/19 01/28/19 01/29/19 01/30/19 05:59 05:59 05:59 05:59 Intake Total 3646 / 3646 1990 Output Total 1999 1925 / 1925 Balance 1646 / 1646 66 / 66
[2019-01-29] MEDS ORDERED: LEVOTHYROXINE 75 MCG TABLET PO SCH (09:00)
[2019-01-29] MEDS: LISINOPRIL 20 MG TABLET PO SCH (09:12)
[2019-01-29] MEDS: Sertraline Tab 50 MG TAB PO SCH (09:12)
--- NOTE | 2019-01-29 11:28 | PTI REPORT ---
Thank you for the referral of Yin Kessler. She was seen on 01/28/19 for an inpatient evaluation status post cervical fusion. SUBJECTIVE: The patient is a 68-year-old female. At the time of the evaluation the patient's daughter was present because the patient has extreme difficulty hearing, requiring the use of a right ear hearing aid as well as lip reading. According to the daughter, she has been having difficulty with her alertness ever since surgery. She states originally Dr. Becerra was planning on doing a surgery yesterday and then again today; however, due to the patient's poor tolerance to the anesthesia and surgery it has been recommended they wait 1-3 months before attempting the second surgery if it is still required. Furthermore, the patient's daughter reports that the patient is from [place] and lives at home by herself but will be returning home with her to [place] until she feels like she is safe enough to be at home by herself. When asked how she is doing, the patient had difficulty responding to the therapist's questions due to fatigue, stating all she wanted to do was sleep. PAST MEDICAL HISTORY: Past medical history can be found in the patient's medical record. OBJECTIVE FINDINGS: General observations: The patient presents with an anterior cervical incision that is covered with a post op bandage. The patient was dependent for her cervical collar fitting; however, verbal education and visual education was performed to the daughter on proper placement. Pain: The patient reports having pain but is unable to rate it on the verbal analog scale (0=no pain, 10=worst pain) due to fatigue. Bed mobility: The patient was able to perform bed mobility from supine to edge of bed with verbal encouragement for alertness of the patient with moderate assistance mainly for the lower extremity. She was able to sit unsupported at the edge of the bed for greater than 10 minutes with a review of diaphragmatic breathing as well as use of her incentive spirometer. Transfers: The patient was able to perform three sit to stand transfers with gait belt and hand hold assist x1. Ambulation: The patient performed ambulatory activities up to 5 feet within her room and was transferred to the chair. Strength/Range of motion: No strength and range of motion measurements were formally done due to the patient being status post cervical fusion. ASSESSMENT: Problem List: Decreased alertness Decreased ability to complete ambulation Patient is dependent for donning soft collar Physical Therapy Goals: To be met by discharge from inpatient: Patient will be able to don and doff cervical collar independently. Patient will be able to ambulate over 100 feet for household ambulation. Patient will be able to perform all bed mobility and transfers with modified independence. Patient will be able to recall and follow lifting precautions. TREATMENT PLAN: Patient will be seen B.I.D during the week and one time per day over the weekend as an inpatient to address the above goals and objectives. INITIAL TREATMENT: Treatment today consisted of the initial evaluation. The patient was able to perform bed mobility from supine to edge of bed with verbal encouragement for alertness of the patient with moderate assistance mainly for the lower extremity. She was able to sit unsupported at the edge of the bed for greater than 10 minutes with a review of diaphragmatic breathing as well as use of her incentive spirometer. The patient was able to perform three sit to stand transfers with gait belt and hand hold assist x1. The patient performed ambulatory activities up to 5 feet within her room and was transferred to the chair where she performed unsupported seated long arc quads, seated marching, and calf raises. We also reviewed lifting restrictions, particularly with the daughter due to the patient's alertness level. She was able to perform step up activities onto the scale with constant verbal prompting. The patient was fitted for and issued a soft collar prior to surgery. Following treatment the patient was placed in the chair in the care of nursing that was in the room. UMAIR
--- NOTE | 2019-01-29 11:43 | PDOC(PROG) ---
Interval History: Patient is very hard of hearing examined her with nurse and daughter at the bedside she has no complaints no nausea no vomiting her blood pressure is a little up in the 170s systolic also requiring 2 L of oxygen Objective : Data - Labs CBC and BMP: 01/29/19 05:10 01/29/19 05:10 Objective : Exam - General General Appearance: Cooperative - Respiratory Respiratory Exam: Clear to Auscultation - Bilaterally, Breathing Non Labored, Normal To Percussion, Normal to Percussion and Palpation - Cardiovascular Cardiovascular Exam: RRR, No Murmur, No Clicks, No Gallops, No Rubs, PMI Non- Displaced - GI/Abdominal GI/Abdominal Exam: Normal Bowel Sounds, Non Tender, Non Distended, Soft, No Masses, No Hepatomegaly, No Splenomegaly, No Organomegaly Assessment and Plan - Patient Problems (1) Chronic neck and back pain Current Visit: Yes Status: Chronic Comment: Status post surgery deferred to neurosurgery team Code(s): M54.2 - Cervicalgia; M54.9 - Dorsalgia, unspecified; G89.29 - Other chronic pain (2) High blood pressure Current Visit: Yes Status: Chronic Comment: We'll add Norvasc 10 mg Code(s): I10 - Essential (primary) hypertension Qualifiers: Hypertension type: essential hypertension Qualified Code(s): I10 - Essential (primary) hypertension (3) High cholesterol Current Visit: Yes Status: Chronic Code(s): E78.00 - Pure hypercholesterolemia, unspecified (4) Seizure disorder Current Visit: Yes Status: Acute Code(s): G40.909 - Epilepsy, unspecified, not intractable, without status epilepticus (5) Hearing loss Current Visit: Yes Status: Acute Code(s): H91.90 - Unspecified hearing loss, unspecified ear Qualifiers: Hearing loss type: unspecified Laterality: bilateral Qualified Code(s): H91.93 - Unspecified hearing loss, bilateral (6) History of neck surgery Current Visit: Yes Status: Acute Code(s): Z98.890 - Other specified postprocedural states - Assessment / Plan Additional Assessment/Plan Details: Continue to continue home meds for other medical issues which are at the present time stable we'll try to adjust her blood pressure meds and may be C4 discharged tomorrow
--- NOTE | 2019-01-29 11:48 | PT.PROG ---
Progress Note Progress Note: S. patient agreed to go for a walk this morning. O. Patient ambulated 50 feet in the [place] and back to her room where she was left in her chair with alarm and call light. A. Patient tolerated ambulation fair, her o2 sats dropped to 89 during ambulation, she would continue to benefit from skilled therapy to increase strength, endurance and safety at this time. P. Continue POC.
--- NOTE | 2019-01-29 12:58 | OTI REPORT ---
Thank you for the referral of iYn Kessler. She was seen on 01/28/19 for an occupational therapy inpatient evaluation status post cervical fusion. SUBJECTIVE: The patient is a 68-year-old female that had a cervical fusion. The patient lives in [place]. Her daughter was present today during the session. The patient's daughter reports that the patient will be coming to live with her in [place] for a while. The patient is legally deaf. She typically reads lips or her daughter reports that she writes things down to ask questions. Prior to admission the patient was able to perform basic ADLs independently. PAST MEDICAL HISTORY: Past medical history can be found in the patient's medical record. OBJECTIVE FINDINGS: General observations: Today the patient was very sleepy. She had difficulty keeping her eyes open during today's session. She was also very nauseated. Nursing staff reported the patient just had Zofran an hour and a half ago. The patient felt like she was going to throw up. Her daughter reports that she has not eaten anything throughout the day and she has not wanted meals. The patient reports she just feels too nauseated. Nursing did state that the patient needed to try to eat some toast or crackers. The patient was sitting in chair. Ambulation: The patient was able to ambulate with hand hold assist x2 to the door and back to the edge of the bed. Once back to the edge of the bed the patient was slightly more alert. Activities of daily living: We went over adaptive devices to assist the patient so she will not have to bend over as much. The patient was issued a form setter steel pan forms, a bath sponge, and a sock aide. The patient had demonstration given, but she was too tired and sore to complete this. Pain: The patient rates her pain as a 7/10 on the verbal analog scale (0=no pain, 10=worst pain). ASSESSMENT: The patient's daughter was educated in a mechanical soft diet for the patient vs. a regular diet. The patient was issued adaptive equipment as this will assist her in being more independent at home and not flexing and moving neck during ADLs. Problem List: Increased pain Decreased appetite Decreased ability to complete ADLs Short-Term Goals: To be met by discharge from inpatient: Patient will be able to dress self with modified independence. Patient will be able to complete a bed transfer independently. Patient will be able to complete a toilet transfer independently and safely. Patient will follow neck precautions during all ADLs. Long-Term Goals: To be met following discharge from inpatient: Patient will be discharged to home with care from daughter and will be able to transfer and dress self independently. TREATMENT PLAN: Patient will be seen B.I.D during the week and one time per day over the weekend as an inpatient to address the above goals and objectives. INITIAL TREATMENT: Treatment today consisted of the initial evaluation followed by the patient transferring from sit to stand with max assist and walking to the door with hand hold assist x2. Once back edge of bed the patient's oxygen was assessed and it had dropped to 83% without oxygen on. We put the patient back on two liters of oxygen. We worked on sitting balance while the patient was sitting edge of bed. While sitting edge of bed we encouraged the patient to eat a cracker. The patient was able to eat 3/4 of the cracker and take a few sips of 7-up. The patient had a salad on her tray, but the patient reported she was unable to eat this. Due to the patient's decreased energy, pain levels, and moving quite slowly, the therapist recommended that they order softer foods at this time. The patient is moving slowly which includes her mobility in the oral region which was observed while she was eating the cracker. The patient then transferred back into bed with max assist. The patient complained of increased pain when moving neck. The patient did have her brace on the entire time. UMAIR
--- NOTE | 2019-01-29 16:16 | PT.PROG ---
Progress Note Progress Note: S. Patient agreed to go for a walk. O. Patient ambulated 100 feet in the [place] and back to her room. Patient was left in her chair with alarm and call light. A. Patient tolerated ambulation well, she was able to ambulate with no pain or problems. P. Continue POC.
--- NOTE | 2019-01-29 16:50 | OT.PROG ---
Progress Note Progress Note: Occupational Therapy S: Pt. reports that she is tired this afternoon, however agrees to participate in therapy session. Pt. reports 7/10 pain in neck. O: Pt. demonstrated the ability to move from sitting propped upright in bed to EOB independently. She required mod A to don neck brace. Pt. then completed LE dressing with the use of recovery engineer and min. A to don undergarments and pants. She then completed UE dressing with a button up t-shirt with set up assist. Pt. demonstrated the ability to doff and don socks and shoes using a leg crossing technique with set up assist, however required assistance to tie her shoes. Pt. completed functional sit to stand transfers with SBA and ambulated X 40' with CGA. Following session, pt. was returned to her bed with call light, alarms, and O2 in place. A: Pt. tolerated treatment session fair. She required some assistance with ADLs, however she is going home to stay with her daughter for a short time. P: Continue POC. AMBERLY Cobian
[2019-01-29] MEDS: HYDROcodone-APAP 10 MG-325 MG TABLET PO PRN ×2 (17:42→21:43)
[2019-01-29] MEDS: HYDRALAZINE 20 MG/1 ML IVP PRN (17:43)
[2019-01-29] MEDS: Simvastatin Tab 10 MG TAB PO SCH (20:01)
[2019-01-30] MEDS: HYDROcodone-APAP 10 MG-325 MG TABLET PO PRN ×5 (01:51→20:49)
[2019-01-30] MEDS: LEVOTHYROXINE 50 MCG TABLET PO SCH (05:26)
[2019-01-30] MEDS: LEVOTHYROXINE 75 MCG TABLET PO SCH (05:26)
[2019-01-30] MEDS: BISACODYL 5 MG TABLET PO PRN (07:40)
[2019-01-30] MEDS: PANTOPRAZOLE 40 MG TABLET PO SCH (07:40)
--- NOTE | 2019-01-30 08:39 | NEURO.PROG ---
Subjective Post Op Day: 3 Pain Management: PO Keen Catheter: No Diet: Regular Ambulating: Yes Additional Details: Ms. Kessler is awake and alert. Her incision is dry and intact. She is still requiring oxygen which she was on at home at nighttime. She accomplished tasks with physical therapy and occupational therapy and feels ready to discharge home with her daughter. She has been given discharge instructions regarding incision care and activity with her neck brace on. She was given a post op appointment to see Dr. Becerra on the February 09 in the [facility]. Objective : Data - Labs CBC and BMP: 01/29/19 05:10 01/29/19 05:10 - Vital Signs Vital Signs and I&O: Vital Signs - Last Taken Temperature 98.2 F 01/30/19 07:00 Pulse Rate 101 H 01/30/19 07:00 Respiratory Rate 12 01/30/19 07:00 Blood Pressure 162/108 01/30/19 07:00 Pulse Ox 100 01/30/19 07:00 Intake and Output (24hr x 4 totals) 01/28/19 01/29/19 01/30/19 01/31/19 05:59 05:59 05:59 05:59 Intake Total 3646 / 3646 1990 / 1990 1500 / 1500 Output Total 1999 / 1999 1925 / 1925 2250 / 2250 Balance 1646 / 1646 66 / 66 -750 / -750
--- NOTE | 2019-01-30 09:01 | NEURO.PROG ---
Subjective Post Op Day: 3 Pain Management: PO Keen Catheter: No Flatus: Yes Diet: Regular Ambulating: Yes Additional Details: Awake and alert. Feeling better. No nausea/vomiting. Neck - soft/flat. Incision - clean/dry/intact. Moving all extremities well. PLAN: 1.) Discharge to home. Objective : Data - Labs CBC and BMP: 01/29/19 05:10 01/29/19 05:10 - Vital Signs Vital Signs and I&O: Vital Signs - Last Taken Temperature 98.2 F 01/30/19 07:00 Pulse Rate 101 H 01/30/19 07:00 Respiratory Rate 12 01/30/19 07:00 Blood Pressure 162/108 01/30/19 07:00 Pulse Ox 100 01/30/19 07:00 Intake and Output (24hr x 4 totals) 01/28/19 01/29/19 01/30/19 01/31/19 05:59 05:59 05:59 05:59 Intake Total 3646 / 3646 1990 / 1990 1500 / 1500 Output Total 1999 1925 / 1925 2250 / 2250 Balance 1646 / 1646 66 / 66 -750 / -750
[2019-01-30] MEDS: LISINOPRIL 20 MG TABLET PO SCH ×2 (09:47→13:12)
[2019-01-30] MEDS: Sertraline Tab 50 MG TAB PO SCH (09:50)
[2019-01-30] MEDS: DIAZEPAM 5 MG TABLET PO PRN ×2 (09:56→16:18)
--- NOTE | 2019-01-30 11:05 | PDOC(PROG) ---
Interval History: Patient is doing well after examining her her buttocks are pretty red initially I thought this was from pressure sitting cream was applied on further examination the redness wraps around her right inner thigh with some puffiness and redness. Objective : Data - Labs CBC and BMP: 01/29/19 05:10 01/29/19 05:10 Objective : Exam - General General Appearance: Cooperative - Respiratory Respiratory Exam: Clear to Auscultation - Bilaterally, Breathing Non Labored, Normal To Percussion, Normal to Percussion and Palpation - Cardiovascular Cardiovascular Exam: RRR, No Murmur, No Clicks, No Gallops, No Rubs, PMI Non- Displaced - GI/Abdominal GI/Abdominal Exam: Normal Bowel Sounds, Non Tender, Non Distended, Soft, No Masses, No Hepatomegaly, No Splenomegaly, No Organomegaly - Extremities Extremities Exam: No Clubbing Present, No Edema Present - Neurological Neurological Exam: Alert - Integumentary Integumentary Exam: Erythema, Rash Additional Integumentary Exam Details: see hpi Assessment and Plan - Patient Problems (1) Chronic neck and back pain Current Visit: No Status: Chronic Comment: defer to Neurosurgery team Code(s): M54.2 - Cervicalgia; M54.9 - Dorsalgia, unspecified; G89.29 - Other chronic pain (2) High blood pressure Current Visit: No Status: Chronic Comment: improved with norvasc Code(s): I10 - Essential (primary) hypertension Qualifiers: Hypertension type: essential hypertension Qualified Code(s): I10 - Essential (primary) hypertension (3) High cholesterol Current Visit: No Status: Chronic Code(s): E78.00 - Pure hypercholesterolemia, unspecified (4) Seizure disorder Current Visit: No Status: Acute Code(s): G40.909 - Epilepsy, unspecified, not intractable, without status epilepticus (5) Hearing loss Current Visit: No Status: Acute Code(s): H91.90 - Unspecified hearing loss, unspecified ear Qualifiers: Hearing loss type: unspecified Laterality: bilateral Qualified Code(s): H91.93 - Unspecified hearing loss, bilateral (6) History of neck surgery Current Visit: No Status: Acute Code(s): Z98.890 - Other specified postprocedural states (7) Cellulitis Current Visit: Yes Status: Acute Comment: poss cellulitis , redness in buttocks in R groin with puffiness check labs stat Code(s): L03.90 - Cellulitis, unspecified
[2019-01-30 11:16] LABS: BASOPHILS # (AUTO) 0.02 10*3/UL; BASOPHILS % (AUTO) 0.2 % (0-1); EOSINOPHILS # (AUTO) 0.14 10*3/UL; EOSINOPHILS % (AUTO) 1.1 % (0-8); Hemoglobin [HGB] 14.6 g/dL (12.0-16.0); LYMPHOCYTES # (AUTO) 1.25 10*3/uL; MEAN CORPUSCULAR HEMOGLOBIN 31.9 PG (27-31); MEAN CORPUSCULAR HGB CONC 33.2 g/dL (33-37); MEAN CORPUSCULAR VOLUME 96.1 FL (81-99); MONOCYTES # (AUTO) 0.75 10*3/UL (0.3-0.8); NEUTROPHILS # (AUTO) 10.33 10*3/UL; NEUTROPHILS % (AUTO) 82.5 % (50-80); RED BLOOD COUNT 4.58 10^6/uL (4.20-5.40)
[2019-01-30 11:37] LABS: PLATELET MORPHOLOGY COMMENT NORMAL MORPHOLOGY (NORM); RBC MORPHOLOGY COMMENT NORMAL MORPHOLOGY (NORM); WBC MORPHOLOGY COMMENT NORMAL MORPHOLOGY (NORM)
[2019-01-30 11:38] LABS: BLOOD UREA NITROGEN 17 mg/dL (7-22); BUN/CREATININE RATIO 18.88 (6-20); SERUM ALBUMIN 4.8 g/dL (3.5-4.8)
[2019-01-30 12:48] LABS: VENOUS PH 7.43 (7.32-7.42)
[2019-01-30] MEDS: POTASSIUM CHLORIDE 20 MEQ TAB PO SCH ×2 (13:12→20:49)
[2019-01-30] MEDS ORDERED: CALCIUM CARBONATE 500 MG (TUMS) CHEWABLE TABLET PO ONE (13:25)
--- NOTE | 2019-01-30 14:09 | DI ---
INDICATION: Shortness of breath TECHNIQUE: Multiple, contiguous 2.5 mm axial cuts of the chest are obtained following the administration of IV contrast. High resolution axial image as well as, sagittal and coronal reformatted images are available. COMPARISON: None FINDINGS: No pulmonary embolus is identified. The aorta is within normal limits, no aneurysm or dissection. The cardiomediastinal structures are normal. No adenopathy or effusions. Mild bilateral lower lobe subsegmental atelectasis. Postoperative changes of the lower cervical spine. The osseous structures are unremarkable. The right thyroid lobe is not well seen. IMPRESSION: 1. No evidence of pulmonary embolus. 2. Query prior right thyroidectomy, correlation can be obtained with ultrasound if clinically indicated for further evaluation.
[2019-01-30] MEDS ORDERED: ceFAZolin Inj 2 GM in Sodium Chloride 0.9% 100 ML IV SCH (16:00)
[2019-01-30] MEDS ORDERED: ceFAZolin 1 GM VIAL ONE (16:16)
[2019-01-30] MEDS: Simvastatin Tab 10 MG TAB PO SCH (20:49)
[2019-01-30] MEDS: DOCUSATE 100 MG CAPSULE PO PRN (20:52)
[2019-01-30] MEDS ORDERED: diphenhydrAMINE 50 MG/1 ML VIAL IVP ONE (21:09)
[2019-01-30] MEDS ORDERED: HYDROcodone-APAP 10 MG-325 MG TABLET PO ONE (22:15)
[2019-01-31] MEDS: ceFAZolin Inj 2gm (Premix) 2 GM/50 ML BAG IV SCH ×4 (00:24→23:26)
[2019-01-31] MEDS: HYDROcodone-APAP 10 MG-325 MG TABLET PO PRN ×5 (00:33→20:09)
[2019-01-31] MEDS: LEVOTHYROXINE 75 MCG TABLET PO SCH (04:43)
[2019-01-31] MEDS: LEVOTHYROXINE 50 MCG TABLET PO SCH (04:43)
[2019-01-31 06:54] LABS: BASOPHILS # (AUTO) 0.02 10*3/UL; BASOPHILS % (AUTO) 0.2 % (0-1); EOSINOPHILS # (AUTO) 0.49 10*3/UL; EOSINOPHILS % (AUTO) 3.7 % (0-8); Hematocrit [HCT] 42.3 % (37.0-47.0); Hemoglobin [HGB] 14.2 g/dL (12.0-16.0); LYMPHOCYTES # (AUTO) 1.42 10*3/uL; MEAN CORPUSCULAR HGB CONC 33.6 g/dL (33-37); MEAN CORPUSCULAR VOLUME 98.4 FL (81-99); MEAN PLATELET VOLUME 10.1 FL (7.4-12.2); MONOCYTES # (AUTO) 0.68 10*3/UL (0.3-0.8); MONOCYTES % (AUTO) 5.1 % (5-15); NEUTROPHILS # (AUTO) 10.63 10*3/UL; NEUTROPHILS % (AUTO) 80.1 % (50-80)
[2019-01-31 07:05] LABS: BLOOD UREA NITROGEN 19 mg/dL (7-22); BUN/CREATININE RATIO 21.11 (6-20); SERUM ALBUMIN 4.4 g/dL (3.5-4.8)
[2019-01-31] MEDS: PANTOPRAZOLE 40 MG TABLET PO SCH (07:07)
[2019-01-31] MEDS: HYDROcodone-APAP 7.5 MG-325 MG TABLET PO PRN (07:08)
--- NOTE | 2019-01-31 07:08 | NEURO.PROG ---
Subjective Post Op Day: 4 Pain Management: PO Diet: Regular Ambulating: Yes Additional Details: Ms Kessler is awake and alert and feels well. Her incision is dry and intact. She is afebrile. And her incision is dry, intact, without erythema. Noted is her elevated white count yesterday with blood draw pending today. She was noted to have redness in her groin, buttocks and around upper thighs yesterday in almost a panty outline. It persists this morning though reportedly improved. She is still requiring 1L oxygen and of note she was on home oxygen at night preoperatively. She underwent CTA yesterday to r/o PE. She states she still feels ready for home, but will defer to Dr Mendoza following lab reports and plan with antibiotic. Continue to mobilize. Objective : Data - Labs CBC and BMP: 01/30/19 10:59 01/30/19 10:59 - Vital Signs Vital Signs and I&O: Vital Signs - Last Taken Temperature 97.3 F 01/31/19 04:55 Pulse Rate 99 01/31/19 04:55 Respiratory Rate 18 01/31/19 04:55 Blood Pressure 119/75 01/31/19 04:55 Pulse Ox 97 01/31/19 04:55 Intake and Output (24hr x 4 totals) 01/29/19 01/30/19 01/31/19 02/01/19 05:59 05:59 05:59 05:59 Intake Total 1990 1500 / 1500 1660 / 1660 Output Total 1925 / 1925 2250 / 2250 Balance 66 / 66 -750 / -750 1660 / 1660
[2019-01-31 07:16] LABS: PLATELET MORPHOLOGY COMMENT NORMAL MORPHOLOGY (NORM); RBC MORPHOLOGY COMMENT NORMAL MORPHOLOGY (NORM); WBC MORPHOLOGY COMMENT NORMAL MORPHOLOGY (NORM)
[2019-01-31] MEDS: POTASSIUM CHLORIDE 20 MEQ TAB PO SCH ×2 (09:01→20:09)
[2019-01-31] MEDS: DOCUSATE 100 MG CAPSULE PO PRN ×2 (09:01→20:10)
[2019-01-31] MEDS: BISACODYL 5 MG TABLET PO PRN (09:01)
[2019-01-31] MEDS: Sertraline Tab 50 MG TAB PO SCH (09:01)
[2019-01-31] MEDS: DIAZEPAM 5 MG TABLET PO PRN ×2 (09:01→15:57)
[2019-01-31] MEDS: LISINOPRIL 20 MG TABLET PO SCH (09:01)
--- NOTE | 2019-01-31 10:32 | PDOC(PROG) ---
Interval History: Patient is doing well postop her oxygenation is well her cellulitis I think is a little improved in the buttocks and groin and back area Objective : Data - Labs CBC and BMP: 01/31/19 06:45 01/31/19 06:45 Objective : Exam - General General Appearance: Cooperative - Respiratory Respiratory Exam: Clear to Auscultation - Bilaterally, Breathing Non Labored, Normal To Percussion, Normal to Percussion and Palpation - Cardiovascular Cardiovascular Exam: RRR, No Murmur, No Clicks, No Gallops, No Rubs, PMI Non- Displaced - GI/Abdominal GI/Abdominal Exam: Normal Bowel Sounds, Non Tender, Non Distended, Soft, No Masses, No Hepatomegaly, No Splenomegaly, No Organomegaly - Extremities Extremities Exam: No Clubbing Present, No Edema Present - Integumentary Additional Integumentary Exam Details: Erythema bile ducts back and groin improved compared to yesterday on examination with nurse and CELLULAR BIOLOGIST Assessment and Plan - Patient Problems (1) Cellulitis Current Visit: Yes Status: Acute Comment: Discussed with Dr. Velazco infectious disease patient on Ancef I did telephone the patient was allergic to penicillin he still said to go ahead and do the Ancef apparently patient didn't have any reaction. Her white count today is 15,000 continue IV antibiotics reevaluate in the morning Code(s): L03.90 - Cellulitis, unspecified (2) Chronic neck and back pain Current Visit: No Status: Chronic Comment: Status postop neck surgery anterior approach defer to Dr. Becerra Code(s): M54.2 - Cervicalgia; M54.9 - Dorsalgia, unspecified; G89.29 - Other chronic pain (3) High blood pressure Current Visit: No Status: Chronic Comment: Now stable I increased the dose of lisinopril to 40 and added Norvasc Code(s): I10 - Essential (primary) hypertension Qualifiers: Hypertension type: essential hypertension Qualified Code(s): I10 - Essential (primary) hypertension (4) High cholesterol Current Visit: No Status: Chronic Code(s): E78.00 - Pure hypercholesterolemia, unspecified (5) Seizure disorder Current Visit: No Status: Acute Code(s): G40.909 - Epilepsy, unspecified, not intractable, without status epilepticus (6) Hearing loss Current Visit: No Status: Acute Code(s): H91.90 - Unspecified hearing loss, unspecified ear Qualifiers: Hearing loss type: unspecified Laterality: bilateral Qualified Code(s): H91.93 - Unspecified hearing loss, bilateral (7) History of neck surgery Current Visit: No Status: Acute Code(s): Z98.890 - Other specified postprocedural states
[2019-01-31] MEDS ORDERED: BENZOCAINE/MENTHOL SPRAY 56 GM BOTTLE TOPICAL PRN (18:13)
[2019-01-31] MEDS ORDERED: NYSTATIN 15 GM OINTMENT TOPICAL PRN (18:13)
[2019-01-31] MEDS: Simvastatin Tab 10 MG TAB PO SCH (20:10)
[2019-02-01] MEDS: LEVOTHYROXINE 50 MCG TABLET PO SCH (05:03)
[2019-02-01] MEDS: LEVOTHYROXINE 75 MCG TABLET PO SCH (05:03)
[2019-02-01] MEDS: HYDROcodone-APAP 10 MG-325 MG TABLET PO PRN ×2 (05:03→10:59)
[2019-02-01 05:44] VITALS: O2SAT 95
--- NOTE | 2019-02-01 06:56 | NEURO.PROG ---
Subjective Post Op Day: 5 Pain Management: PO Diet: Regular Ambulating: Yes Additional Details: Ms Kessler is awake and alert and only complaint is of the erythematous and rash like areas in her groin, buttock, thighs and now under her breasts. She said she gets hot and sweaty which makes it worse. She is afebrile. Her incision is dry and intact. No erythema. Her hand and arm strength are good and equal bilaterally. She is up and about without difficulty. She moved her bowels. From a neuro surgery standpoint she is ready for discharge. Objective : Data - Labs CBC and BMP: 01/31/19 06:45 01/31/19 06:45 - Vital Signs Vital Signs and I&O: Vital Signs - Last Taken Temperature 97.9 F 02/01/19 05:00 Pulse Rate 94 02/01/19 05:43 Respiratory Rate 18 02/01/19 05:43 Blood Pressure 136/94 02/01/19 05:00 Pulse Ox 95 02/01/19 05:43 Intake and Output (24hr x 4 totals) 01/30/19 01/31/19 02/01/19 02/02/19 05:59 05:59 05:59 05:59 Intake Total 1500 / 1500 1660 / 1660 1605 / 1605 Output Total 2250 / 2250 1050 / 1050 Balance -750 / -750 1660 / 1660 555 / 555
[2019-02-01] MEDS: PANTOPRAZOLE 40 MG TABLET PO SCH (07:10)
[2019-02-01 07:16] VITALS: BP 152/100; RESP 16; TEMP 97.3
--- NOTE | 2019-02-01 07:50 | NEURO.PROG ---
Subjective Post Op Day: 5 Pain Management: PO Keen Catheter: No Flatus: Yes Diet: Regular Ambulating: Yes Additional Details: Awake and alert. Moving all extremities well. Incision - clean/dry/intact Rash - maculopapular, erythematous. under breast and groin creases bilaterally. Possible cellulitis buttocks bilaterally - erythematous, indurated, blanches. PLAN: 1.) Discharge today with Nystatin cream and antibiotics per hospitalist. 2.) Follow-up in [facility] February 09, 11:00am. Objective : Data - Labs CBC and BMP: 01/31/19 06:45 01/31/19 06:45 - Vital Signs Vital Signs and I&O: Vital Signs - Last Taken Temperature 97.3 F 02/01/19 07:15 Pulse Rate 89 02/01/19 07:15 Respiratory Rate 16 02/01/19 07:15 Blood Pressure 152/100 02/01/19 07:15 Pulse Ox 95 02/01/19 07:15 Intake and Output (24hr x 4 totals) 01/30/19 01/31/19 02/01/19 02/02/19 05:59 05:59 05:59 05:59 Intake Total 1500 / 1500 1660 / 1660 1605 / 1605 Output Total 2250 / 2250 1050 / 1050 Balance -750 / -750 1660 / 1660 555 / 555
[2019-02-01] MEDS: Sertraline Tab 50 MG TAB PO SCH (08:32)
[2019-02-01] MEDS: LISINOPRIL 20 MG TABLET PO SCH (08:32)
[2019-02-01] MEDS: ceFAZolin Inj 2gm (Premix) 2 GM/50 ML BAG IV SCH (08:32)
[2019-02-01] MEDS: POTASSIUM CHLORIDE 20 MEQ TAB PO SCH (08:33)
[2019-02-01 09:01] LABS: BASOPHILS # (AUTO) 0.02 10*3/UL; BASOPHILS % (AUTO) 0.1 % (0-1); EOSINOPHILS # (AUTO) 0.69 10*3/UL; EOSINOPHILS % (AUTO) 4.9 % (0-8); Hemoglobin [HGB] 14.1 g/dL (12.0-16.0); LYMPHOCYTES # (AUTO) 1.83 10*3/uL; MEAN CORPUSCULAR HEMOGLOBIN 32.3 PG (27-31); MEAN CORPUSCULAR HGB CONC 32.8 g/dL (33-37); MEAN CORPUSCULAR VOLUME 98.6 FL (81-99); MEAN PLATELET VOLUME 10.4 FL (7.4-12.2); MONOCYTES # (AUTO) 0.79 10*3/UL (0.3-0.8); MONOCYTES % (AUTO) 5.6 % (5-15); NEUTROPHILS # (AUTO) 10.82 10*3/UL; NEUTROPHILS % (AUTO) 76.2 % (50-80); RED BLOOD COUNT 4.36 10^6/uL (4.20-5.40)
[2019-02-01 09:02] LABS: PLATELET MORPHOLOGY COMMENT NORMAL MORPHOLOGY (NORM); RBC MORPHOLOGY COMMENT NORMAL MORPHOLOGY (NORM); WBC MORPHOLOGY COMMENT NORMAL MORPHOLOGY (NORM)
--- NOTE | 2019-02-01 09:39 | DCSUMMARY ---
Hospitalization Summary Hospital Course: Final Discharge Diagnosis: Cellulitis Cervical spine surgery surgery Diagnostic Data, Laboratory Data, and Procedures of Signifigance: Laboratory Results 02/01/19 08:56 WBC 14.19 H RBC 4.36 Hgb 14.1 Hct 43.0 MCV 98.6 MCH 32.3 H MCHC 32.8 L RDW Std Deviation 49.0 RDW Coeff of Rebecca 13.7 Plt Count 360 H MPV 10.4 Immature Gran % (Auto) 0.3 Neut % (Auto) 76.2 Lymph % (Auto) 12.9 [place] % (Auto) 5.6 Eos % (Auto) 4.9 Baso % (Auto) 0.1 Immature Gran # (Auto) 0.04 Neut # (Auto) 10.82 Lymph # (Auto) 1.83 [place] # (Auto) 0.79 Eos # (Auto) 0.69 Baso # (Auto) 0.02 WBC Morphology Comment Normal morphology Plt Morphology Comment Normal morphology RBC Morph Comment Normal morphology History and Physical pertinent to Admission: Course of Hospitalization: This very nice 68-year-old female who underwent cervical spine surgery by Dr. Becerra please see his notes and operative notes for details hospital was was consult did for the postop hypertension. Which is now improved I did double the dose of the lisinopril to 40 and added Norvasc 10 mg as well. She developed a cellulitis over her buttocks and groin and back while in the hospital I counseled with Dr. Quinn Fernandez infectious disease which instructed to start IV antibiotics Ancef I did tell him she was allergic to penicillin C said that that is okay to start anyway patient did well without any allergic reaction. Her cellulitis is a mildly improved her white count is still elevated but left shift is normal I discussed this with him today he said to send her home on 1 g of Keflex 3 times a day and she will have a follow-up with Dr. Julien infectious disease in [place] at 10 AM I discussed this with her family member the daughter and agreed. I also discussed this with the walker I told her that the patient will be discharged and she said that they are okay from their standpoint. Patient is doing well awake and oriented she has no complaints and is very happy to be discharged home. In regards to postop follow-up PT OT orders and pain control this is all handled by the neurosurgical team On the date of discharge, the patient was examined: Gen.: No acute distress, alert, nontoxic Heart: Regular rate and rhythm, no murmurs, clicks, gallops, or rubs Lungs: Clear to auscultation bilaterally, breathing is nonlabored Abdomen/GI: Normal tones on auscultation, soft, nontender, nondistended Musculoskeletal/extremities: No clubbing, cyanosis, or edema Vitals reviewed and are listed below Vital Signs (24 hrs) 01/31/19 12:33 01/31/19 16:02 01/31/19 19:00 Temperature 98 F 98.1 F Pulse Rate [Pulse Oximeter] 95 95 Respiratory Rate 16 16 20 Blood Pressure [Left Arm] 106/63 Blood Pressure [Right Arm] 131/81 Pulse Ox 91 92 01/31/19 21:00 02/01/19 00:11 02/01/19 05:00 Temperature 98 F 97.5 F 97.9 F Pulse Rate [Pulse Oximeter] 79 96 105 H Respiratory Rate 20 Blood Pressure [Left Arm] Blood Pressure [Right Arm] 144/91 148/87 136/94 Pulse Ox 95 96 97 02/01/19 05:43 02/01/19 07:15 Temperature 97.3 F Pulse Rate [Pulse Oximeter] 94 89 Respiratory Rate 18 16 Blood Pressure [Left Arm] Blood Pressure [Right Arm] 152/100 Pulse Ox 95 95 Assessment and Plan: 1. As per discharge assessments above 2. Disposition: Home 3. Condition on discharge, stable and improved. 4. Diet: regular diet 5. Activities: resume normal activities 6. Follow-Up: 1. PCP 2. Dr. Julien 10 AM on February 05 7. Medications at the Time of Discharge: Home Medications Medication Instructions Recorded Confirmed Type aspirin 81 mg tablet,delayed 81 mg PO QDAY 08/06/18 01/26/19 History release sertraline 100 mg tablet 100 mg PO QDAY 08/06/18 01/26/19 History simvastatin 10 mg tablet 10 mg PO QHS 08/06/18 01/26/19 History Cholecalciferol (Vitamin D3) 25 gm MC DAILY 12/25/18 01/26/19 History [Vitamin D3] [place]-3/Dha/Epa/Fish Oil [[place] 3 1 cap PO DAILY 12/25/18 01/26/19 History 500 Softgel] hydrocodone 5 mg-acetaminophen 325 1 tab PO Q4-6H PRN #90 tab 12/28/18 01/26/19 Rx mg tablet Albuterol Sulfate [Ventolin Hfa] 2 puff INHALATION Q6H 01/28/19 01/28/19 History Levothyroxine Sodium 75 mg PO DAILY 01/28/19 01/28/19 History Pantoprazole Sodium [Protonix] 40 mg PO DAILY 01/28/19 01/28/19 History Cephalexin [Keflex] 1,000 mg PO Q8H #21 cap 02/01/19 Rx Cyclobenzaprine HCl [Flexeril] 5 mg PO TID #60 tab 02/01/19 Rx HYDROcodone/APAP 10/325 Tab 1 - 2 tab PO Q4H PRN #60 tab 02/01/19 Rx [Hydrocodon-Acetaminoph 10/325 Tab] Nystatin Ointment [Mycostatin 1 applic TOPICAL TID PRN #1 tube 02/01/19 Rx Ointment] Norvasc 10 mg by mouth daily Cipro 40 mg by mouth daily 8. Time, care, counseling and coordination of care for this discharge is greater than 30 minutes. Exam - Vitals Vital Signs: Vital Signs Temperature 97.3 F Temperature Source Temporal Artery Scan Pulse Rate [Telemetry] 76 Pulse Rate [Apical] 90 Pulse Rate [Pulse Oximeter] 89 Pulse Rate 76 Respiratory Rate 16 Blood Pressure [Right Arm] 152/100 Blood Pressure [Left Arm] 106/63 Blood Pressure 100/67 Pulse Ox 95 Oxygen Flow Rate 1 Oxygen Delivery Method Room Air Height 5 ft 3 in Weight 136 lb Patient Problems - Patient Problem List (1) Cellulitis Current Visit: No Status: Acute Code(s): L03.90 - Cellulitis, unspecified Category: Medical (2) Chronic neck and back pain Current Visit: No Status: Chronic Code(s): M54.2 - Cervicalgia; M54.9 - Dorsalgia, unspecified; G89.29 - Other chronic pain Category: Medical (3) High blood pressure Current Visit: No Status: Chronic Code(s): I10 - Essential (primary) hypertension Qualifiers: Hypertension type: essential hypertension Qualified Code(s): I10 - Essential (primary) hypertension Category: Medical (4) High cholesterol Current Visit: No Status: Chronic Code(s): E78.00 - Pure hypercholesterolemia, unspecified Category: Medical (5) Seizure disorder Current Visit: No Status: Acute Code(s): G40.909 - Epilepsy, unspecified, not intractable, without status epilepticus Category: Medical (6) Hearing loss Current Visit: No Status: Acute Code(s): H91.90 - Unspecified hearing loss, unspecified ear Qualifiers: Hearing loss type: unspecified Laterality: bilateral Qualified Code(s): H91.93 - Unspecified hearing loss, bilateral Category: Medical (7) History of neck surgery Current Visit: No Status: Acute Code(s): Z98.890 - Other specified postprocedural states Category: Surgical
--- NOTE | 2019-02-01 10:16 | OT.PROG ---
Progress Note Progress Note: S: pt was in her chair receiving antibiotics. pt and daughter report that she gets to go home today. She reports she had a rash although it is slowly getting better. O: pt was able to complete toilet transfer, toilet hygiene and clothing management with distant SBA. pt then completed LE and UE dressing with SBA only and no equipment. pt functionally ambulated 150 feet with CGA for safety only, no loss of balance noted. pt was fatigued at the end of the session. A: pt is doing well. the daughter plans on bringing her home with her for a while till she is more [place]. P: pt is to DC home with the daughter today.
--- NOTE | 2019-02-01 11:12 | PT.PROG ---
Progress Note Progress Note: S. Patient's daughter reported they have no stairs at home. Patient agreed to go for a walk. O. Patient ambulated 150 feet around the nurses station and was left in her chair with alamr and call light. A. Patient tolerated ambulation well, she was able to ambulate with no balance deficits. P. Patient has met all goals at this time.
--- NOTE | 2019-02-01 11:37 | PT AM DAY ---
Diagnosis : Cervical Fusion AM - Physical Therapy S: At the time of treatment the patient's daughter was present. She states she is under the understanding that they will be discharging her mother and she will be taking her mother home with her to [place]. O: Today's therapy consisted of reviewing donning and doffing and adjusting of the cervical collar which the patient was able to do as well as ambulating over 300 feet continuously with a front wheeled walker that was issued to the patient. Up until today she had been using the hospital's, but states she would feel more comfortable using one. She has one at home; however, it is in [place] and she will be going home with her daughter to [place]. We also reviewed dressing activities. A: The patient did very well with all activities and is appropriate for discharge from physical therapy; however, later in the day, nursing came to contact physical therapy stating that the patient is developing a rash along the coccyx, hips, and groin region. They are unsure of what it is at this time and are worried about possible infection and the patient may not be discharged at this time. P: Continue seeing patient BID during the week and one time per day over the weekend for transfers, ambulation, and range of motion/strengthening exercises. MTDD
--- NOTE | 2019-02-01 14:21 | PT AM DAY ---
Diagnosis : Cervical Fusion AM - Physical Therapy S: The patient's daughter states she was not discharged yesterday due to concerns with a rash and they have undergone a battery of tests to test for infection. O: Today's therapy only consisted of review of training of donning and doffing cervical neck brace. She has been ambulating throughout the day multiple times both yesterday and again this morning by the nursing staff and is doing well with all of her transfers. A: The patient tolerated today's treatment well. P: Continue seeing patient BID during the week and one time per day over the weekend for transfers, ambulation, and range of motion/strengthening exercises. MTDD
== END 2019-02-01 11:37 | disposition home or self-care (01) | DRG 29 ==
LOC: OPS 05:32 → MED/SURG 15:15
PROVIDERS: ADMIT Neurological Surgery; ATTEND Neurological Surgery